=== PATIENT | male | born 1955 | race Asian ===

== ENCOUNTER 2021-04-27 12:28 | Emergency (ER) | payer MEDICARE ==
[~2021-04-27] VITALS: Ht 170.2 cm; Wt 59.1 kg
[~2021-04-27 12:28] MED LIST: ACET-784 PO; AMLO2.5T96 PO; APIX5TAB PO; ASPI81TA39 PO; ATOR40TA28 PO; DEXTROSE IVP; FURO40 PO; INSLAN SQ; INSU100V SQ; LISI-892 PO; METO50 PO; ONDA-104 PO; SENN8.6T90 PO
[2021-04-27 14:44] VITALS: BP 141/72
== END 2021-04-27 15:53 | disposition home or self-care (01) ==
LOC: EMS 12:47
DX: Z00.00 Encounter for general adult medical examination without abnormal findings (principal); I10 Essential (primary) hypertension; E11.9 Type 2 diabetes mellitus without complications; I48.91 Unspecified atrial fibrillation; Z79.899 Other long term (current) drug therapy; Z86.73 Personal history of transient ischemic attack (TIA), and cerebral infarction without residual deficits
CPT/HCPCS: 82962; 99283

== ENCOUNTER 2021-05-28 15:47 | Inpatient (IN) | payer MEDICARE, MEDICAID ==
[~2021-05-28] VITALS: Ht 170.2 cm; Wt 64.4 kg
[2021-05-28] MEDS ORDERED: IOHEXOL 350 MG/ML 100 ML VIAL ONE (15:57)
[2021-05-28] MEDS ORDERED: SODIUM CHLORIDE 0.9% 100 ML ONE (15:57)
[2021-05-28 16:19] LABS: BASOPHILS % (AUTO) 1.4 % (0.0-2.0); EOSINOPHILS % (AUTO) 4.4 % (1.0-6.0); HEMATOCRIT 43.4 % (41-53); HEMOGLOBIN 14.6 g/dL (13.5-17.5); LYMPHOCYTES # (AUTO) 1.3 K/uL (1.0-4.8); MEAN CORPUSCULAR HGB CONC 33.7 G/dL (31.0-37.0); MEAN CORPUSCULAR VOLUME 89 fL (80-100); MONOCYTES # (AUTO) 0.6 K/uL (0.1-1.0); MONOCYTES % (AUTO) 9.6 % (2.0-9.0); NEUTROPHILS # (AUTO) 4.3 K/uL (1.8-7.7); NEUTROPHILS % (AUTO) 64.6 % (40.0-70.0); PLATELET COUNT (AUTO) 286 K/uL (150-450); RED BLOOD CELL COUNT(AUTO) 4.88 MIL/uL (4.50-5.90); RED CELL DISTRIBUTION WIDTH 14.8 % (11.5-14.5)
[2021-05-28 16:30] LABS: CALCIUM, TOTAL 9.7 mg/dL (8.8-10.5); CREATININE 1.2 mg/dL (0.60-1.30); POTASSIUM 3.6 mmol/L (3.5-5.1)
[2021-05-28 16:31] LABS: PROTHROMBIN TIME 10.8 SEC (9.4-11.6)
[2021-05-28 16:36] LABS: TOTAL PROTEIN, SERUM 8.4 g/dL (6.4-8.2)
[2021-05-28 17:35] LABS: COVID AG,FIA SOURCE NASAL SWAB
[2021-05-28] MEDS ORDERED: FAMO20 PO (17:48)
[2021-05-28] MEDS ORDERED: METF-1185 PO (17:48)
[2021-05-28] MEDS ORDERED: INSLAN SQ (17:48)
[2021-05-28] MEDS ORDERED: METO50 PO (17:49)
[2021-05-28] MEDS ORDERED: AMLO-257 PO (17:49)
[2021-05-28] MEDS ORDERED: ASPI-1444 PO (18:12)
[2021-05-28] MEDS ORDERED: GLIP5TAB11 PO (18:12)
[2021-05-28] MEDS ORDERED: METF-1211 PO (18:12)
[2021-05-28] MEDS ORDERED: ASPIRIN 325 MG DR TABLET PO ONE (18:15)
[2021-05-28] MEDS ORDERED: LABETALOL HCL 5 MG/ML 20 ML VIAL IVP ONE (18:30)
[2021-05-28 20:46] VITALS: BP 141/94
[2021-05-28] MEDS ORDERED: ASPIRIN 81 MG CHEWABLE TABLET PO ONE (21:15)
[2021-05-28 23:33] VITALS: BP 179/127
[2021-05-29 04:02] VITALS: BP 171/96
[2021-05-29 06:22] LABS: BASOPHILS % (AUTO) 0.8 % (0.0-2.0); EOSINOPHILS % (AUTO) 4.4 % (1.0-6.0); HEMATOCRIT 41.7 % (41-53); LYMPHOCYTES # (AUTO) 1.1 K/uL (1.0-4.8); LYMPHOCYTES % (AUTO) 13.1 % (22.0-44.0); MEAN CORPUSCULAR HEMOGLOBIN 29.9 pg (26.0-34.0); MEAN CORPUSCULAR HGB CONC 33.6 G/dL (31.0-37.0); MEAN CORPUSCULAR VOLUME 89 fL (80-100); MONOCYTES # (AUTO) 0.8 K/uL (0.1-1.0); MONOCYTES % (AUTO) 9.1 % (2.0-9.0); NEUTROPHILS # (AUTO) 6.1 K/uL (1.8-7.7); NEUTROPHILS % (AUTO) 72.6 % (40.0-70.0); PLATELET COUNT (AUTO) 260 K/uL (150-450); RED CELL DISTRIBUTION WIDTH 14.7 % (11.5-14.5)
[2021-05-29 06:49] LABS: ANION GAP 8 mmol/L (8-16); CALCIUM, TOTAL 8.8 mg/dL (8.8-10.5); CARBON DIOXIDE 28 mmol/L (22-29); CHLORIDE 105 mmol/L (98-107); CREATININE 0.84 mg/dL (0.60-1.30); GLOMERULAR FILTR. RATE CALC > 60 mL/min (>60); GLUCOSE,RANDOM 145 mg/dL (70-110); SODIUM SERUM 141 mmol/L (136-145); UREA NITROGEN, BLOOD 22 mg/dL (7-18)
[2021-05-29] MEDS: METOPROLOL TARTRATE 50 MG TABLET PO SCH ×2 (06:51→20:36)
[2021-05-29 07:14] VITALS: BP 142/92
[2021-05-29 07:17] LABS: POTASSIUM 2.8 mmol/L (3.5-5.1)
[2021-05-29 07:46] LABS: CHOL/HDL RATIO 2.2 (4.2-7.3); THYROID STIMULATING HORMONE 1.77 uIU/mL (0.36-3.74)
[2021-05-29] MEDS ORDERED: POTASSIUM CHLORIDE 20 MEQ ER TABLET PO ONE (09:30)
[2021-05-29] MEDS: ASPIRIN 81 MG DR TABLET PO SCH (09:40)
[2021-05-29] MEDS: APIXABAN 5 MG TABLET PO SCH ×2 (09:40→20:35)
[2021-05-29] MEDS: AmLODIPine BESYLATE 5 MG TABLET PO SCH (09:40)
[2021-05-29] MEDS: FUROSEMIDE 40 MG TABLET PO SCH (09:41)
[2021-05-29] MEDS ORDERED: POTASSIUM CHL 10 MEQ/WATER 50 ML IV PRN (11:00)
[2021-05-29] MEDS ORDERED: DEXTROSE 50%-WATER 25 GM/50 ML SYRINGE IVP PRN (11:00)
[2021-05-29 11:11] VITALS: BP 134/90
[2021-05-29] MEDS: INSULIN LISPRO 100 UNITS/ML SQ PRN ×3 (12:29→20:36)
[2021-05-29] MEDS ORDERED: GADOTERATE MEGLUMINE 10 MMOL/20 ML VIAL IVP ONE (15:16)
[2021-05-29 15:27] VITALS: BP 130/68
[2021-05-29 20:07] VITALS: BP 128/92
[2021-05-29] MEDS: INSULIN GLARGINE,HUM.REC.ANLOG 100 UNITS/ML SQ SCH (20:36)
[2021-05-29] MEDS ORDERED: ATORVASTATIN CALCIUM 20 MG TABLET PO SCH (21:00)
[2021-05-29] MEDS ORDERED: ATORVASTATIN CALCIUM 40 MG TABLET PO SCH (21:00)
[2021-05-30] VITALS (7 sets, daily range): BP systolic 124–136; BP diastolic 78–98
[2021-05-30 01:01] LABS: GLUCOMETER DEV NAME(LOC) 5S.2B; GLUCOSE,POINT OF CARE 190 MG/DL (70-110)
[2021-05-30 01:01] LABS: GLUCOMETER DEV NAME(LOC) 5S.2B; GLUCOSE,POINT OF CARE 317 MG/DL (70-110)
[2021-05-30 01:01] LABS: GLUCOMETER DEV NAME(LOC) 5S.2B; GLUCOSE,POINT OF CARE 222 MG/DL (70-110)
[2021-05-30] MEDS: APIXABAN 5 MG TABLET PO SCH ×2 (08:21→20:21)
[2021-05-30] MEDS: AmLODIPine BESYLATE 5 MG TABLET PO SCH (08:21)
[2021-05-30] MEDS: FUROSEMIDE 40 MG TABLET PO SCH (08:21)
[2021-05-30] MEDS: ASPIRIN 81 MG DR TABLET PO SCH (08:21)
[2021-05-30] MEDS: METOPROLOL TARTRATE 50 MG TABLET PO SCH ×2 (08:43→20:21)
[2021-05-30 12:02] LABS: GLUCOMETER DEV NAME(LOC) 5S.1B; GLUCOSE,POINT OF CARE 153 MG/DL (70-110)
[2021-05-30] MEDS: INSULIN LISPRO 100 UNITS/ML SQ PRN ×3 (12:10→20:22)
[2021-05-30] MEDS: INSULIN GLARGINE,HUM.REC.ANLOG 100 UNITS/ML SQ SCH (20:21)
[2021-05-31 04:33] VITALS: BP 125/90
[2021-05-31] MEDS ORDERED: PERFLUTREN PROTEIN-A MICROSPHERES 0.22 MG/ML 3 ML VIAL IVP ONE (07:00)
[2021-05-31 07:06] LABS: GLUCOMETER DEV NAME(LOC) 5N.1C; GLUCOSE,POINT OF CARE 145 MG/DL (70-110)
[2021-05-31 07:06] LABS: GLUCOMETER DEV NAME(LOC) 5N.1C; GLUCOSE,POINT OF CARE 190 MG/DL (70-110)
[2021-05-31 07:06] LABS: GLUCOMETER DEV NAME(LOC) 5N.1C; GLUCOSE,POINT OF CARE 199 MG/DL (70-110)
[2021-05-31 07:06] LABS: GLUCOMETER DEV NAME(LOC) 5N.1C; GLUCOSE,POINT OF CARE 264 MG/DL (70-110)
[2021-05-31 07:44] VITALS: BP 129/97
[2021-05-31] MEDS: AmLODIPine BESYLATE 5 MG TABLET PO SCH (08:47)
[2021-05-31] MEDS: APIXABAN 5 MG TABLET PO SCH ×2 (08:47→21:30)
[2021-05-31] MEDS: FUROSEMIDE 40 MG TABLET PO SCH (08:47)
[2021-05-31] MEDS: METOPROLOL TARTRATE 50 MG TABLET PO SCH (08:47)
[2021-05-31] MEDS: ASPIRIN 81 MG DR TABLET PO SCH (08:47)
[2021-05-31 11:38] VITALS: BP 115/78
[2021-05-31] MEDS: INSULIN LISPRO 100 UNITS/ML SQ PRN (12:11)
[2021-05-31 15:46] VITALS: BP 133/84
[2021-05-31 17:26] LABS: GLUCOMETER DEV NAME(LOC) 5N.1C; GLUCOSE,POINT OF CARE 272 MG/DL (70-110)
[2021-05-31 20:13] VITALS: BP 137/90
[2021-05-31 20:21] LABS: GLUCOMETER DEV NAME(LOC) 5N.1C; GLUCOSE,POINT OF CARE 122 MG/DL (70-110)
[2021-05-31] MEDS: SACUBITRIL/VALSARTAN 24-26 MG TABLET PO SCH (21:30)
[2021-05-31] MEDS: INSULIN GLARGINE,HUM.REC.ANLOG 100 UNITS/ML SQ SCH (21:38)
[2021-06-01 00:15] VITALS: BP 132/93
[2021-06-01 02:11] LABS: APPEARANCE,URINE CLEAR (CLEAR); BILIRUBIN,URINE NEGATIVE (NEGATIVE); GLUCOSE, URINE (UA) 70-100 mg/dL (NEGATIVE); KETONES,URINE NEGATIVE (NEGATIVE); LEUKOCYTE ESTERASE ,URINE NEGATIVE (NEGATIVE); NITRATE,URINE NEGATIVE (NEGATIVE); OCCULT BLOOD,URINE NEGATIVE (NEGATIVE); PROTEIN,URINE NEGATIVE (NEGATIVE); SPECIFIC GRAVITIY, URINE 1.005 (1.003-1.030); UROBILINOGEN,URINE <=1.0 mg/dL (<=1.0)
[2021-06-01 02:16] LABS: AMPHET/METH SCREEN,URINE NEGATIVE (NEGATIVE); BARBITURATE SCREEN, URINE NEGATIVE (NEGATIVE); BENZODIAZEPINES SCREEN,URINE NEGATIVE (NEGATIVE); CANNABINOID SCREEN,URINE NEGATIVE (NEGATIVE); COCAINE SCREEN,URINE NEGATIVE (NEGATIVE); METHADONE SCREEN, URINE NEGATIVE (NEGATIVE); OPIATE SCREEN,URINE NEGATIVE (NEGATIVE); PHENCYCLIDINE SCREEN,URINE NEGATIVE (NEGATIVE)
[2021-06-01 02:32] LABS: BACTERIA,URINE None Seen /HPF (None Seen); RBC,URINE None Seen /HPF (0-2); WBC,URINE None Seen /HPF (0-5)
[2021-06-01 03:31] LABS: GLUCOMETER DEV NAME(LOC) 5N.1C; GLUCOSE,POINT OF CARE 235 MG/DL (70-110)
[2021-06-01 04:05] VITALS: BP 128/89
[2021-06-01 06:51] LABS: GLUCOMETER DEV NAME(LOC) 5N.1C; GLUCOSE,POINT OF CARE 136 MG/DL (70-110)
[2021-06-01 07:02] VITALS: BP 117/81
[2021-06-01 07:05] LABS: ALANINE AMINOTRANSFERASE 108 U/L (12-78); ALBUMIN 3.5 g/dL (3.4-5.0); ALKALINE PHOSPHATASE 117 U/L (46-116); ANION GAP 8 mmol/L (8-16); ASPARTATE AMINOTRANSFERASE 27 U/L (15-37); CALCIUM, TOTAL 9.3 mg/dL (8.8-10.5); CARBON DIOXIDE 29 mmol/L (22-29); CHLORIDE 101 mmol/L (98-107); CREATININE 0.96 mg/dL (0.60-1.30); GLOMERULAR FILTR. RATE CALC > 60 mL/min (>60); GLUCOSE,RANDOM 132 mg/dL (70-110); SODIUM SERUM 138 mmol/L (136-145); TOTAL PROTEIN, SERUM 7.6 g/dL (6.4-8.2); UREA NITROGEN, BLOOD 20 mg/dL (7-18)
[2021-06-01] MEDS ORDERED: METOPROLOL SUCCINATE 50 MG ER TABLET PO SCH (09:00)
[2021-06-01] MEDS: FUROSEMIDE 40 MG TABLET PO SCH (09:09)
[2021-06-01] MEDS: ASPIRIN 81 MG DR TABLET PO SCH (09:09)
[2021-06-01] MEDS: APIXABAN 5 MG TABLET PO SCH (09:09)
[2021-06-01] MEDS: SACUBITRIL/VALSARTAN 24-26 MG TABLET PO SCH (09:10)
[2021-06-01] MEDS: POTASSIUM CHLORIDE 20 MEQ ER TABLET PO PRN ×2 (09:11→14:04)
[2021-06-01 11:06] VITALS: BP 137/94
[2021-06-01 11:56] LABS: GLUCOMETER DEV NAME(LOC) 5S.2B; GLUCOSE,POINT OF CARE 241 MG/DL (70-110)
[2021-06-01] MEDS: INSULIN LISPRO 100 UNITS/ML SQ PRN (12:02)
[2021-06-01] MEDS ORDERED: SACU1TAB PO (13:45)
[2021-06-01] MEDS ORDERED: METO-391 PO (13:45)
[2021-06-01 15:36] VITALS: BP 122/92
[2021-06-15] MEDS ORDERED: PANT-31 PO (10:00)
[2021-06-15] MEDS ORDERED: CEPH-556 PO (10:42)
== END 2021-06-01 18:20 | disposition home health service (06) | DRG 69 ==
LOC: EMS 15:47 → 5S 19:14
PROVIDERS: ADMIT Internal Medicine; ATTEND Internal Medicine
DX: G45.9 Transient cerebral ischemic attack, unspecified (principal); E44.0 Moderate protein-calorie malnutrition; I48.20 Chronic atrial fibrillation, unspecified; I42.8 Other cardiomyopathies; E11.649 Type 2 diabetes mellitus with hypoglycemia without coma; Z68.22 Body mass index [BMI] 22.0-22.9, adult; E83.51 Hypocalcemia; I11.0 Hypertensive heart disease with heart failure; I50.9 Heart failure, unspecified; E87.6 Hypokalemia; E78.5 Hyperlipidemia, unspecified; F17.200 Nicotine dependence, unspecified, uncomplicated; I48.0 Paroxysmal atrial fibrillation; M24.541 Contracture, right hand; I44.7 Left bundle-branch block, unspecified; R79.89 Other specified abnormal findings of blood chemistry; I69.320 Aphasia following cerebral infarction; Z79.01 Long term (current) use of anticoagulants; Z79.4 Long term (current) use of insulin; I69.392 Facial weakness following cerebral infarction; Z79.82 Long term (current) use of aspirin; Z79.899 Other long term (current) drug therapy; Z20.822 Contact with and (suspected) exposure to COVID-19
CPT/HCPCS: 70496; 70498; 70553; 71045; 80048; 80053; 80061; 80076; 81001; 82962; 84132; 84443; 84484; 85025; 85610; 85730; 86850; 86900; 86901; 87081; 92507; 92610; 93005; 93306; 93880; 97112; 97161; 97166; 97530; 97535; 99285; C8924; J1815; J3490; J7050; Q9967; 36415-L1; 36415-TC; 70450; 70450-TC

== ENCOUNTER 2021-06-08 11:52 | Emergency (ER) | payer MEDICARE, MEDICAID ==
[~2021-06-08] VITALS: Ht 167.6 cm; Wt 68.2 kg
[~2021-06-08 11:52] MED LIST changes: +AMLO-257 PO; -AMLO2.5T96 PO; +ASPI-1444 PO; -ASPI81TA39 PO; -DEXTROSE IVP; +FAMO20 PO; +GLIP5TAB11 PO; -LISI-892 PO; +METF-1211 PO; +METO-391 PO; -METO50 PO; -ONDA-104 PO; +SACU1TAB PO
[2021-06-08 12:35] LABS: BASOPHILS % (AUTO) 1.3 % (0.0-2.0); EOSINOPHILS % (AUTO) 2.6 % (1.0-6.0); HEMATOCRIT 32.2 % (41-53); HEMOGLOBIN 10.9 g/dL (13.5-17.5); LYMPHOCYTES # (AUTO) 0.9 K/uL (1.0-4.8); MEAN CORPUSCULAR HEMOGLOBIN 30.5 pg (26.0-34.0); MEAN CORPUSCULAR VOLUME 90 fL (80-100); MONOCYTES # (AUTO) 0.5 K/uL (0.1-1.0); MONOCYTES % (AUTO) 5.2 % (2.0-9.0); NEUTROPHILS % (AUTO) 81.9 % (40.0-70.0); PLATELET COUNT (AUTO) 325 K/uL (150-450); RED BLOOD CELL COUNT(AUTO) 3.59 MIL/uL (4.50-5.90); RED CELL DISTRIBUTION WIDTH 15.1 % (11.5-14.5)
[2021-06-08 12:42] LABS: ANION GAP 12 mmol/L (8-16); CALCIUM, TOTAL 9.1 mg/dL (8.8-10.5); CARBON DIOXIDE 25 mmol/L (22-29); CHLORIDE 106 mmol/L (98-107); CREATININE 1.06 mg/dL (0.60-1.30); GLOMERULAR FILTR. RATE CALC > 60 mL/min (>60); GLUCOSE,RANDOM 133 mg/dL (70-110); POTASSIUM 4.1 mmol/L (3.5-5.1); SODIUM SERUM 143 mmol/L (136-145); UREA NITROGEN, BLOOD 47 mg/dL (7-18)
[2021-06-08 13:13] VITALS: BP 138/86
[2021-06-15] MEDS ORDERED: PANT-31 PO (10:00)
[2021-06-15] MEDS ORDERED: CEPH-556 PO (10:42)
== END 2021-06-08 13:29 | disposition home or self-care (01) ==
LOC: EMS 11:55
DX: R55 Syncope and collapse (principal); I10 Essential (primary) hypertension; E11.9 Type 2 diabetes mellitus without complications; E78.00 Pure hypercholesterolemia, unspecified; I48.91 Unspecified atrial fibrillation; Z88.8 Allergy status to other drugs, medicaments and biological substances; Z79.899 Other long term (current) drug therapy; Z79.84 Long term (current) use of oral hypoglycemic drugs
CPT/HCPCS: 70450; 71045; 80048; 82962; 85025; 93005; 99285; 36415-L1; 36415-TC